=== PATIENT | male | born 1955 | race Caucasian/White ===

== ENCOUNTER → 2019-08-06 09:09 | Outpatient (BNVA) | payer BC, SELFPAY | PROVIDERS: Family Provider Family Medicine; PCP Family Medicine; Visit Provider Family Medicine | DX: I10 Essential (primary) hypertension (principal); E78.5 Hyperlipidemia, unspecified; R35.1 Nocturia; M19.90 Unspecified osteoarthritis, unspecified site; J20.8 Acute bronchitis due to other specified organisms | CPT/HCPCS: 80053; 80061; 84153; 85025 ==

== ENCOUNTER → 2020-05-05 11:20 | Outpatient (BNVA) | payer BC, SELFPAY | PROVIDERS: Family Provider Family Medicine; PCP Family Medicine; Visit Provider Nurse Practitioner Family | DX: Z20.828 Contact with and (suspected) exposure to other viral communicable diseases (principal) | CPT/HCPCS: 87426 ==

== ENCOUNTER 2020-05-09 12:57 | Day surgery (SDC) | payer BC, SELFPAY ==
[2020-05-09] VITALS (8 sets, daily range): BP systolic 110–158; BP diastolic 75–96; PULSE 71–80; RESP 15–18; TEMP 36.2–37.1; O2SAT 96–97; BMI 36.7
--- NOTE | 2020-05-09 13:35 | W.ED.COVID ---
HPI - COVID General: Chief Complaint: Infusion Bamlanivimab Stated Complaint: BAM Time Seen by Provider: 05/09/20 13:12 Source: patient Mode of arrival: ambulatory Limitations: no limitations Triage information: No fever, cough or shortness of breath. Exposure to COVID + person last 14 days History of Present Illness: HPI Narrative: The patient is a 64-year-old male with a history of hypertension and hyperlipidemia who is also a smoker who presents to the emergency department with complaints of COVID-19. He started feeling ill about a week ago got tested about 5 days ago and it was positive. Symptoms include fever, body aches, mild shortness of breath on exertion. His primary care felt he was a candidate for Bamlanivimab infusion so she sent him here. MD complaint: known COVID positive Prior covid testing: yes, results known COVID 19 common symptoms: positive fever(s), cough and non-productive cough; negative chills, productive cough, dyspnea, fatigue, body aches, headache(s), loss of sense of smell and/or taste, throat pain, nasal congestion, nausea, vomiting or diarrhea COVID 19 other sytmptoms: negative chest pressure, chest pain, pleuritic pain, requiring oxygen, requiring more oxygen, respiratory distress, cyanosis, lethargy, confusion, new neurological complaints or other concerning symptoms Onset (ago): week(s) (1) Severity: mild Pertinent comorbid conditions: hypertension and tobacco use/smoking Treatment prior to arrival: none COVID Results: SARS-CoV-2 Antigen (Rapid) Positive (Negative) H 05/05/20 11:20 05/05/20 Review of Systems General: Reports: 10 or more systems reviewed and unremarkable except in HPI and below Const: Reports: fever(s); Denies: chills, body aches or fatigue Eyes: Denies: change in vision or blurry vision ENMT: Denies: throat pain or nasal congestion Card: Denies: chest pain Resp: Reports: non-productive cough; Denies: dyspnea or productive cough GI: Denies: nausea, vomiting or diarrhea : Denies: flank pain, dysuria, urinary frequency, urinary urgency or urinary hesitancy Musc: Denies: neck pain, back pain or extremity swelling Skin/Breast: Denies: rash, pruritus or erythema Neuro: Denies: headache(s) or confusion Endo: Denies: polyuria, polydipsia or tired all the time PFSH ED PFSH: Medical History (Reviewed 05/09/20 @ 13:47 by Selena Iglesias [place] [facility] [place] Dyslipidemia Essential hypertension History of 2019 novel coronavirus disease (COVID-19) Osteoarthritis Surgical History History of eye surgery Family History (Reviewed 05/09/20 @ 13:47 by Selena Iglesias [place] [facility] [place] Other CAD (coronary artery disease) Stroke Social History Smoking and tobacco status: current every day smoker cigarettes Packs smoked per day: 1 Alcohol intake: never Substance/Drug Use: never Physical Exam Const: COMMON NORMALS: no acute distress, average body habitus, patient oriented x3, no limitations, healthy appearing, alert and well nourished HENMT: COMMON NORMALS: normocephalic, atraumatic and moist oral mucous membranes HEAD & SCALP: normocephalic and atraumatic Neck/C-Spine: COMMON NORMALS: no meningeal signs and no JVD Resp: COMMON NORMALS: normal respiratory effort, No retractions, No use of accessory muscles, clear to auscultation bilaterally and percussion normal AUSCULTATION: clear to auscultation bilaterally PERCUSSION: percussion normal Cardio: COMMON NORMALS: no JVD, regular rate, regular rhythm, S1 normal heart sound present, S2 normal heart sound present, No gallops present (Cardio), No clicks present (Cardio), No murmurs present (Cardio), No rub (Cardio) and Peripheral pulses 2+ throughout RATE: regular rate RHYTHM: regular rhythm HEART SOUNDS: S1 normal heart sound present and S2 normal heart sound present PERIPHERAL PULSES: Peripheral pulses 2+ throughout GI: COMMON NORMALS: Normal to inspection, nondistended, normoactive bowel sounds present, Soft to palpation, non-tender, No hepatosplenomegaly present, no masses and no bruits PALPATION: Yes Soft to palpation and Yes No hepatosplenomegaly present Extremity: COMMON NORMALS: normal to inspection, full ROM, capillary refill normal, no calf tenderness and no pedal edema Neuro: COMMON NORMALS: patient oriented x3 SENSORIUM/ORIENTATION: Yes alert MENINGEAL SIGNS: Yes no meningeal signs Skin: COMMON NORMALS: no rashes or lesions noted, no wounds, turgor normal, no jaundice, no petechiae and no mottling GENERAL SKIN EXAM: no rashes or lesions noted and turgor normal Course ED course: Patient who is here for a Bamlanivimab infusion. He is cleared in the emergency department and will be sent to outpatient therapy for the infusion Vital Signs: Vital signs: Vital Signs Temperature 97.2 F L 05/09/20 13:26 Pulse Rate 79 05/09/20 13:26 Respiratory Rate 15 05/09/20 13:26 Blood Pressure 133/80 05/09/20 13:26 Pulse Oximetry 96 05/09/20 13:26 MDM - COVID MDM Narrative: Medical decision making narrative: 64-year-old male with COVID-19. He is not hypoxic and does not require oxygen. His risk factors include hypertension, a BMI of greater than 35, cigarette smoking. He therefore qualifies for monoclonal antibody infusion and he will be discharged to the outpatient department for this. Vital signs are stable in the emergency department and evaluation is unremarkable. Medical Records: Attestation: I reviewed the patient's medical records. Lab Data: Attestation: I reviewed the patient's lab results. COVID Results: SARS-CoV-2 Antigen (Rapid) Positive (Negative) H 05/05/20 11:20 05/05/20 Monoclonal Antibody Treatments Inclusion/Exclusion Criteria weight >/= 40 kg and + direct Sars-Cov-2 test less than 7-10 days ago BMI >/= 35 and age >/= 55 and has hypertension not requiring hospitalization, not requiring oxygen (if not chronically on oxygen) and no increase oxygen requirement (if chronically on oxygen) Patient education patient/family/caregiver received/reviewed fact sheet, Emergency Use Authorization/unapproved drug status discussed with patient/family/caregiver, alternatives to this treatment discussed with patient/family/caregiver, risks and benefits of medication reviewed with patient/family/caregiver, patient/family/caregiver given opportunity for questions, which were answered and patient consents to receiving Monoclonal Antibody Treatment Plan for treatment Meets criteria for Monoclonal Antibody infusion Ordering Monoclonal Antibody infusion for today and Monoclonal antibody information given Discharge Plan Discharge Patient Disposition: Home Clinical Impression: COVID-19 Condition: Stable Prescriptions: Continued losartan 25 mg tablet 25 mg PO ONCE Qty: 90 RF: 1 simvastatin 40 mg tablet 40 mg PO DAILY Qty: 90 RF: 1 celecoxib [Celebrex] 200 mg capsule 200 mg PO DAILY Qty: 90 RF: 1 mupirocin 2 % ointment 1 applic TOPICAL DAILY Qty: 22 RF: 0 cyclobenzaprine 10 mg tablet 10 mg PO .po q hs PRN (Reason: muscle spasm) Qty: 30 RF: 0 Discharge Orders: Discharge ED (Routine); Ordered 05/09/20 Ordered By: Selena Iglesias Referrals: Dejah Bruner DO [Primary Care Provider] - 1-3 days Discharge Diet: Usual diet Discharge Activity: Resume usual activity Patient Instructions: Viral Syndrome - Adult Activity Restrictions/Additional Instructions: Return for any new or worsening symptoms. Follow-up with your primary care provider within 3 days. Take Tylenol or ibuprofen as needed for fever. Coding Level of Care Code ED Food Processing Scientist for Katie Collins
--- NOTE | 2020-05-12 15:31 | DCPLANNER ---
Addendum entered by Alanis Aburto 05/20/20 14:56: manager cath lab called to check on patient after day 10 of getting the BAM infusion. Patients stated that patient is doing really well, he is getting his strength back, has not been admitted to the hospital. Addendum entered by Alanis Aburto 05/15/20 11:22: manager cath lab called to check on patient, he stated that he felt fine. Stated that he has a little cough but nothing bad. Original Note: manager cath lab had message that patient received the BAM infusion. manager cath lab called patient Spoke with patients , she stated that patient tolerated the infusion well. Before the infusion patient had a fever, cough, an odd smell. After the infusion patient still has a cough but it is much better. Patient is not running a fever at this time, his oxygen is running on average 95. Patient had a telehealth visit today, 05.12.[address] Eaton office. Patient has another follow up appointment scheduled for Tuesday, May 19, [address] Eaton office.
== END 2020-05-09 16:15 | disposition home or self-care (01) ==
LOC: ER 13:50 → OPS 13:54
PROVIDERS: Emergency Provider Family Medicine; PCP Family Medicine; Visit Provider Family Medicine
DX: U07.1 COVID-19 (principal); E78.5 Hyperlipidemia, unspecified; I10 Essential (primary) hypertension; M19.90 Unspecified osteoarthritis, unspecified site; F17.210 Nicotine dependence, cigarettes, uncomplicated
CPT/HCPCS: 12345; 96365; 99281; J7050

== ENCOUNTER → 2020-08-25 09:46 | Outpatient (BNVA) | payer BC, SELFPAY | PROVIDERS: PCP Family Medicine; Visit Provider Family Medicine | DX: M15.0 Primary generalized (osteo)arthritis (principal); Z12.5 Encounter for screening for malignant neoplasm of prostate; I10 Essential (primary) hypertension; E78.5 Hyperlipidemia, unspecified; F17.219 Nicotine dependence, cigarettes, with unspecified nicotine-induced disorders; Z68.34 Body mass index [BMI] 34.0-34.9, adult | CPT/HCPCS: 80053; 80061; 81015; 82043; 83036; 85025; G0103 ==

== ENCOUNTER → 2021-02-23 10:17 | Outpatient (BNVA) | payer BC, SELFPAY | PROVIDERS: PCP Family Medicine; Visit Provider Family Medicine | DX: I10 Essential (primary) hypertension (principal); E78.5 Hyperlipidemia, unspecified; M15.0 Primary generalized (osteo)arthritis; F17.219 Nicotine dependence, cigarettes, with unspecified nicotine-induced disorders | CPT/HCPCS: 80053 ==

== ENCOUNTER → 2021-03-17 14:30 | Outpatient (BNVA) | payer BC, SELFPAY | PROVIDERS: PCP Family Medicine; Visit Provider Nurse Practitioner Family | DX: Z20.822 Contact with and (suspected) exposure to COVID-19 (principal) | CPT/HCPCS: 87426; 87635 ==

== ENCOUNTER → 2021-04-30 13:20 | Outpatient (BNVA) | payer BC, SELFPAY | PROVIDERS: PCP Family Medicine; Visit Provider Nurse Practitioner Family | DX: Z20.822 Contact with and (suspected) exposure to COVID-19 (principal); J06.9 Acute upper respiratory infection, unspecified | CPT/HCPCS: 87426; 87635 ==

== ENCOUNTER → 2021-08-24 10:25 | Outpatient (BNVA) | payer BC, SELFPAY | PROVIDERS: PCP Family Medicine; Visit Provider Family Medicine | DX: I10 Essential (primary) hypertension (principal); E78.5 Hyperlipidemia, unspecified; R35.1 Nocturia; R06.2 Wheezing | CPT/HCPCS: 80053; 80061; 82043; 84153; 85025 ==

== ENCOUNTER → 2022-11-05 09:36 | Outpatient (BNVA) | payer BC, SELFPAY | PROVIDERS: PCP Family Medicine; Visit Provider Family Medicine | DX: I10 Essential (primary) hypertension (principal); R35.1 Nocturia | CPT/HCPCS: 80053; 80061; 82043; 84153; 85025 ==

== ENCOUNTER → 2023-05-06 11:22 | Outpatient (BNVA) | payer BC, SELFPAY | PROVIDERS: PCP Family Medicine; Visit Provider Family Medicine | DX: I10 Essential (primary) hypertension (principal) | CPT/HCPCS: 80053 ==

== ENCOUNTER 2023-11-08 09:17 | Outpatient (CLI) | payer BC, SELFPAY ==
--- NOTE | 2023-11-08 09:20 | XRR_ITS ---
PROCEDURE INFORMATION: Exam: XR Right Shoulder Exam date and time: 11/08/2023 9:23 AM Age: 68 years old Clinical indication: Patient HX: Knot on the posterior side of right shoulder. Sharp joint pains. ; Additional info: Right shoulder pain TECHNIQUE: Imaging protocol: Radiologic exam of the right shoulder. Views: 2 or more views. COMPARISON: CR XR shoulder RT min 2V* [id number] 07/10/2018 3:22 PM FINDINGS: Bones/joints: The glenohumeral and acromioclavicular joints are normally aligned. No acute fracture is seen. Lungs: Visualized portions of the chest are normal. Soft tissues: Unremarkable. XR/XR shoulder RT min 2V* [id number] IMPRESSION: No evidence of acute fracture or dislocation.
== END 2023-11-08 09:18 | disposition home or self-care (01) ==
LOC: RAD 09:18
PROVIDERS: PCP Family Medicine; Visit Provider Family Medicine
DX: M25.511 Pain in right shoulder (principal); G89.29 Other chronic pain; Z13.6 Encounter for screening for cardiovascular disorders; E78.5 Hyperlipidemia, unspecified
CPT/HCPCS: 73030; 80053; 80061; 82043; 83721; 84153; 85025; 93005

== ENCOUNTER 2023-12-14 07:09 | Outpatient (CLI) | payer BC, SELFPAY ==
[2023-12-14 07:26] VITALS: BMI 39.0
--- NOTE | 2023-12-14 07:26 | ECG_ITS ---
[facility] Test Date: 2023-12-14 Pat Name: Pasquale Milligan Department: Room: Gender: Male Canvas Marker: : 1955 Requested By: Dejah Bruner Order Number: [id number] Reading MD: Interpretive Statements Lung unchanged pre/post procedure; Intraprocedure shortess of breath; Symptoms resoled by discharge [email or web address]
[2023-12-14 09:10] VITALS: BP 173/78; PULSE 78
== END 2023-12-14 07:10 | disposition home or self-care (01) ==
PROVIDERS: PCP Family Medicine; Visit Provider Family Medicine
DX: R06.02 Shortness of breath (principal)
CPT/HCPCS: 36415; 78452; 93017; A9500

== ENCOUNTER 2024-03-22 13:38 | Outpatient (CLI) | payer BC, SELFPAY ==
--- NOTE | 2024-03-22 14:00 | USCV_ITS ---
Pasquale Milligan Age: 68 Gender: M : 1955 Exam Date: 03/22/2024 13:49 Ordering Phys: Dewey Lux MD ([email or web address]) Technologist: KASH [place] [facility] [place]: chest pain sob BP: / HR: 58 Rhythm: Sinus Technical Quality: Adequate MEASUREMENTS (Male / Female) Normal Values 2D ECHO LV Diastolic Diameter PLAX 4.8 cm 4.2 - 5.9 / 3.9 - 5.3 cm IVS Diastolic Thickness 1.0 cm 0.6 - 1.0 / 0.6 - 0.9 cm IVS Systolic Thickness 1.3 cm LVPW Diastolic Thickness 1.7 cm 0.6 - 1.0 / 0.6 - 0.9 cm LVPW Systolic Thickness 1.5 cm LVOT Diameter 2.0 cm LV Ejection Fraction 2D Teich 70.5 % LV Ejection Fraction MOD 4C 54.0 % LV Ejection Fraction MOD 2C 49.9 % LV Ejection Fraction 2C AL 53.7 % LA Diameter 3.4 cm RA Systolic Volume 4C AL 16.6 ml RA Systolic Volume 4C MOD 16.3 ml LA Sys Volume AL 22.0 cm cubed LA Sys Volume Index AL 9.0 cm cubed/m squared Aorta at Sinotubular Diameter 3.0 cm M-MODE LA Ao Ratio MM 1.9 AV Cusp Separation MM 1.9 cm DOPPLER AV Peak Velocity 129.0 cm/s LVOT Peak Velocity 96.0 cm/s AV Area Cont Eq vti 2.0 cm squared AV Area Cont Eq pk 2.4 cm squared MV Area PHT 3.2 cm squared Mitral E to A Ratio 0.8 TR Peak Velocity 105.0 cm/s TR Peak Gradient 4.4 mmHg TR Mean Velocity 77.0 cm/s TR Mean Gradient 2.6 mmHg TR Velocity Time Integral 24.4 cm TV Peak E Velocity 55.0 cm/s PV Peak Velocity 97.0 cm/s FINDINGS Left Ventricle Mild diffuse hypokinesia of the left ventricle with an LV ejection fraction of 50-55%. Right Ventricle Normal right ventricular size and systolic function. Right Atrium The right atrium is normal in size. Left Atrium The left atrium is normal in size. Mitral Valve No gross morphologic abnormalities were noted Aortic Valve No gross morphologic abnormalities were noted Tricuspid Valve Trace tricuspid valve regurgitation. Pulmonic Valve No gross morphologic abnormalities were noted Pericardium Normal pericardium without effusion. Aorta Normal ascending aorta dimension. IVC Normal inferior vena cava. CONCLUSIONS Mild diffuse hypokinesia of the left ventricle with an LV ejection fraction of 50-55%. Normal right ventricular size and systolic function. Trace of tricuspid valve regurgitation. There is no pericardial effusion. There are no intracardiac masses. No similar previous studies are available for comparison Dr Dewey Lux MD FAC (Electronically Signed) Final Date: 25 March 2024 19:14 S
== END 2024-03-22 13:39 | disposition home or self-care (01) ==
LOC: RAD 13:39
PROVIDERS: PCP Family Medicine; Visit Provider Internal Medicine Cardiovascular Disease
DX: R06.09 Other forms of dyspnea (principal)
CPT/HCPCS: 93306

== ENCOUNTER → 2024-09-26 09:06 | Outpatient (BNVA) | payer BC, SELFPAY | PROVIDERS: PCP Family Medicine; Visit Provider Family Medicine | DX: Z00.00 Encounter for general adult medical examination without abnormal findings (principal); I10 Essential (primary) hypertension; Z12.5 Encounter for screening for malignant neoplasm of prostate; Z11.59 Encounter for screening for other viral diseases; Z13.6 Encounter for screening for cardiovascular disorders | CPT/HCPCS: 80053; 80061; 80074; 84153; 85025 ==

== ENCOUNTER 2024-10-05 06:15 | Outpatient (CLI) | payer BC, SELFPAY ==
[2024-10-05 06:21] VITALS: BMI 38.7
--- NOTE | 2024-10-05 06:21 | ECG_ITS ---
[facility] Test Date: 2024-10-05 Pat Name: Pasquale Milligan Department: Room: Gender: Male Manager Social Media: : 1955 Requested By: Jeimy Doyle Order Number: [id number] Agustin MD: Dewey Lux M.D. Interpretive Statements Lung unchanged pre/post procedure; Intraprocedure shortess of breath; Symptoms resoled by discharge PROCEDURE: The baseline electrocardiogram showed normal sinus rhythm with normal ST-Ts. At the baseline, the patient's blood pressure was 169/110 mm Hg with a heart rate of 84. The patient exercised for 5 minutes and 16 seconds on a standard Jam protocol. Patient attained a maximum heart rate of 152 beats per minute(99% of the maximum predicted heart rate) with a blood pressure at the peak exercise of 188/79 mm Hg. The EKG at the peak exercise revealed [address] depressions in lead II, 3, aVF, V3-V6. Patient did not have any chest pain or any significant arrhythmis with the exercise. He had shortness of breath with exercise. Sestamibi was injected 1 minute prior to the peak exercise During the recovery phase, there were no new changes. The EKG reverted back to the baseline Blood pressure at the end of the recovery phase was 173/95 mm Hg with a heart rate of 95 per minute. CONCLUSION: 1. Abnormal EKG response to [treadmill exercise suggesting ischemia in the distribution of the right coronary artery/left anterior descending artery 2. No exercise-induced chest pain or cardiac arrhythmia 3. Moderate impaired exercise tolerance, attained a maximum of 7.0 METs 4. Sestamibi/Sestamibi perfusion results pending; see separate report. Electronically Signed On 10-12-2024 10:43:38 CDT by Dewey Lux M.D. [email or web address] [email or web address]
--- NOTE | 2024-10-05 06:21 | NMCV_ITS ---
NM liana perf SPECT r/s* [id number] Pasquale Milligan Age: 69 Gender: M : 1955 Exam Date: 10/05/2024 06:59 Ordering Phys: Jeimy Doyle Technologist: NICOLE Gama Exam Location: [facility] Indications: CP STRESS TEST Please see separate stress test report in [facility] for full findings IMAGE PROTOCOL Rest/Stress 1 Exercise Day Radiopharmaceutical Dose (mCi) Administration Site Administered by Rest: Tc-99m 10.5 IV NICOLE Gama Sestamibi Stress:Tc-99m 33 IV NICOLE Contreras Sestamibi Rest: 05-Oct-2024 60 Discovery 630 Stress: 05-Oct-2024 30 Discovery 630 Radiopharmaceutical was injected at 88 % maximum heart rate. Images obtained in supine and prone position. SPECT RESULTS Technical Quality: Good Raw Data Analysis: Normal Image Corrections: No attenuation or motion correction applied Summed Stress Score: 3 Summed Rest Score: 0 Summed Difference Score: 3 PERFUSION FINDINGS Large area of moderate to severe reversibility noted in basal distal inferior wall suggestive of ischemia in RCA or dominant left circumflex territory. FUNCTIONAL RESULTS (calculated via Gated SPECT) Stress Image LV EF (%): 60 Stress EDV (mL):121 TID: 1.05 Stress ESV (mL):48 FUNCTIONAL FINDINGS: Inferior wall hypokinesis IMPRESSIONS Large area of moderate to severe ischemia noted in basal to distal inferior wall and RCA or dominant circumflex territory. Lucas Sutton MD (Electronically Signed) Final Date: 07 Oct 2024 14:08 S
[2024-10-05 08:06] VITALS: BP 173/95; PULSE 90
== END 2024-10-05 06:16 | disposition home or self-care (01) ==
LOC: CDL 06:16
PROVIDERS: PCP Family Medicine; Visit Provider Nurse Practitioner Family
DX: R07.9 Chest pain, unspecified (principal); R93.1 Abnormal findings on diagnostic imaging of heart and coronary circulation
CPT/HCPCS: 36415; 78452; 93017; A9500

== ENCOUNTER 2024-10-10 08:37 | Outpatient (CLI) | payer BC, SELFPAY ==
--- NOTE | 2024-10-10 09:00 | USCV_ITS ---
Pasquale Milligan Age: 69 Gender: M : 1955 Exam Date: 10/10/2024 09:04 Ordering Phys: Frank Minaya MD Technologist: [facility] [place] [facility] [place]: aaa screening HISTORY: Diameter (cm) AP x Transverse x Length Velocity (cm/s) Waveform Prox Aorta: 2.15 x 2.21 x 60.90 Triphasic Mid Aorta: 2.04 x 2.07 x 64.30 Triphasic Distal Aorta: 2.02 x 2.14 x 63.30 Triphasic Right Iliac Prox: 1.61 x 1.69 x 138.20 Triphasic Left Iliac Prox: 1.88 x 1.88 x 135.60 Triphasic Stent Prox Landing x x Aneurysmal Sac Max x x Lt Lat Sac Dim Rt Lat Sac Dim Stent Dist Landing x x Right Iliac Stent x x Left Iliac Stent x x Right Renal Art Left Renal Art FINDINGS: CONCLUSIONS No evidence of abdominal aortic or bilateral iliac aneurysm. Moderate arteriovascular disease within the abdominal aorta. Sloan George MD (Electronically Signed) Final Date: 10 Oct 2024 13:30 S
== END 2024-10-10 08:38 | disposition home or self-care (01) ==
PROVIDERS: PCP Family Medicine; Visit Provider Family Medicine
DX: Z13.6 Encounter for screening for cardiovascular disorders (principal); I70.0 Atherosclerosis of aorta
CPT/HCPCS: 93978

== ENCOUNTER 2024-10-19 09:34 | Outpatient (CLI) | payer BC, SELFPAY ==
--- NOTE | 2024-10-19 10:00 | CT_ITS ---
WS: [id number] LDCT LUNG CANCER SCREENING TECHNIQUE: Noncontrast CT of the chest with coronal and sagittal reformatted images. CLINICAL INFORMATION: screening COMPARISON: None. DLP: 136.31 mGy.cm DIvol: Mean CTDIvol: 2.90 (mGy) All CT scans at [facility] use at least one of these dose optimization techniques: automated exposure control; mA and/or kV adjustment per patient size (includes targeted exams where dose is matched to clinical indication); or iterative reconstruction. FINDINGS: Calcified granulomas. No suspicious pulmonary parenchymal abnormalities. Aortic calcification. Coronary calcification. No mediastinal or hilar lymphadenopathy. Calcified hilar and mediastinal lymph nodes. Adrenal glands are normal. Cholelithiasis. Mild thoracic curve. Hypertrophic changes thoracic spine. CT/CT lung screening [id number] IMPRESSION: LUNG-RADS: FOLLOW UP:
== END 2024-10-19 09:35 | disposition home or self-care (01) ==
PROVIDERS: PCP Family Medicine; Visit Provider Family Medicine
DX: Z12.2 Encounter for screening for malignant neoplasm of respiratory organs (principal); F17.219 Nicotine dependence, cigarettes, with unspecified nicotine-induced disorders; J44.9 Chronic obstructive pulmonary disease, unspecified; J84.10 Pulmonary fibrosis, unspecified; I70.0 Atherosclerosis of aorta; I25.10 Atherosclerotic heart disease of native coronary artery without angina pectoris; R59.0 Localized enlarged lymph nodes; K80.20 Calculus of gallbladder without cholecystitis without obstruction; M43.8X4 Other specified deforming dorsopathies, thoracic region; M89.38 Hypertrophy of bone, other site
CPT/HCPCS: 71271

== ENCOUNTER 2024-11-28 05:57 | Outpatient (CLI) | payer BC, SELFPAY ==
[2024-11-28] VITALS (32 sets, daily range): BP systolic 98–168; BP diastolic 52–109; PULSE 67–92; RESP 14–26; TEMP 36.7–36.8; O2SAT 90–97; BMI 38.7
--- NOTE | 2024-11-28 06:00 | XACV_ITS ---
Exam Room: [id number] Ht: 173 cm Wt: 116 kg BSA: 2.41 m2 Gender: Male : 1955 Any Known Allergies: Other Exam Priority: Routine Procedure(s): Procedure Description: Diagnostic procedure Procedure Description: PCI procedure Procedure Description: Left Heart Catheterization Procedure Description: Left ventriculography Procedure Description: Drug Eluting Coronary Stent Procedure Description: PTCA Procedure Description: Miscellaneous Procedure Description: ACT Procedure Description: Coronary Angiography Jose J SILVESTRE; Diagnostic Cath Status: Elective Diagnostic Findings * Left main is a medium caliber short vessel which bifurcates to the left anterior descending artery and the circumflex artery. * The Left anterior descending artery is a medium caliber vessel which appears to taper off to the LV apex. The proximal LAD was found to have 30 to 40% diffuse eccentric narrowing with some calcification. The mid LAD is very tortuous. There is a 40% tubular narrowing in the mid LAD. The first and the second diagonal branches were found to have around 30 to 40% ostial narrowing. No other significant stenotic lesions. * The left circumflex artery is a medium to large caliber vessel which was found to be very tortuous in the proximal segment. The first obtuse marginal branch was found to have mild diffuse intimal irregularities. Right after the first obtuse marginal artery, the circumflex proper was found to have an elongated severe diffuse disease of 70 to 90%. The distal circumflex appears to bifurcate. Mild diffuse irregularities are noted in this distal segment. Grade 2-3 [id number] collaterals were noted filling of the distal right coronary artery. * The right coronary artery appears to be completely occluded near to the ostium after the sinus jesus branch. PCI Status: Elective Interventional Findings * Procedure detail: We engaged left main artery with XB 3.0 guide catheter. IV heparin was administered to maintain anticoagulation. Run-through wire was used to cross the stenosis and placed in the distal left circumflex artery. We predilated the stenosis with 2.5 x 20 mm semicompliant balloon. This was followed by placement of 2.5 x 30 mm resolute [place] drug-eluting stent through GuideLiner as prior to stenosis, circumflex artery was tortuous. At this time final angiogram was performed that showed excellent stent expansion, no residual stenosis and with reflow. Guidewire and guide catheter were removed. Patient left the Flight Attendant/Inflight Supervisor in a stable condition.. * Mid to distal Circumflex: 80-90% stenosis treated with a AB TREK 2.50X20 RX BALLOON, and MDT R FLORIAN 2.5X30 SOCO. 0% residual stenosis, NICOLE: 3 flow. Conclusions 1. 69-year-old white male with history of hypertension, dyslipidemia and COPD is presenting with complaints of chest pain and shortness of breath. He had a Myocardial perfusion imaging which revealed moderate to large area of reversible defect in the inferolateral wall region suggestive of ischemia in distribution of the right coronary artery/circumflex artery. For further evaluation of his coronary status, a cardiac catheterization was recommended. Patient underwent left heart catheterization with left and right coronary angiogram and LV angiogram today. The findings are as follows. 2. 1. Short left main with no significant lesions 2. Mild diffuse disease in the proximal and mid LAD.3. High-grade elongated lesion in the mid circumflex artery.4. Total occlusion of the right coronary artery with a grade 2-3 [id number] collaterals.5. Normal LV ejection fraction with LVEDP of 19 mmHg. 3. I reviewed and discussed the cardiac catheterization data with Dr. Carrillo. It was thought to be appropriate to consider PCI of the circumflex artery lesion. Dr. Carrillo concurred with this plan and took over further management this patient at this point. 4. S/p PCI of mid to distal left cricumflex artery stenosis with 1 stent. 5. Mid Circumflex was treated with a Balloon, and Drug Eluting Stent. Recommendations * Dual antiplatelet therapy with aspirin and plavix. * High intensity statin therapy. * Outpatient cardiology follow up in 2 weeks. Interventional RX Recommendation: PCI w/o planned CABG Diagnostic RX Recommendation: PCI w/o planned CABG Anticoagulation: Heparin Ventriculography Ejection Fraction: 60.0 % LV EDP: 19 mmHg Left Ventriculography Findings: * The LV gram was performed in the ESQUIVEL projection. The LV cavity appears to be normal size. The LV ejection fraction was within normal limits. The LVEDP was 19 mmHg. There is no filling defects. No significant Significant Thomson. Severe significant mitral valve prolapse or mitral regurgitation. Pressures Phase:Rest AO : 105 / 66 ( 77 ) @ 8:36:00 AM 139 / 81 ( 107 ) @ 8:48:00 AM 139 / 80 ( 107 ) @ 8:48:00 AM 164 / 74 ( 102 ) @ 8:53:00 AM 133 / 88 ( 109 ) @ 8:59:00 AM 125 / 84 ( 104 ) @ 9:29:00 AM LV : 153 / -8 / 19 @ 8:48:00 AM 150 / -7 / 18 @ 8:48:00 AM 146 / -4 / 18 @ 8:48:00 AM Valves Phase:DefaultPhase AV : 3.0 @ 8:51:52 AM AV Mean Gradient: 19.0 @ 8:51:52 AM Clinical Evaluation EBL: 5mL-10mL Procedural Details Procedure Consent Obtained. Pre-Procedure Time Out. Identified patient by full name and date of as verbalized by the patient/guarantor. Does the consent match the physician's order: Yes. Accurate & Complete Informed Consent: Yes. Inpatient/Outpatient History & Physical on Chart: Yes. If H&P is completed, is and addenduem needed: No. Visualize and Verify Site with Patient/Guarantor: N/A. Relevant Radiology Images available: Yes. The risks, benefits, and alternatives of sedation and/or procedure were discussed by physician. The patient agrees to continue. Procedure started. [facility] Clinical Fraility Score: 3: Managing Well. Flight Attendant/Inflight Supervisor Indications: New Onset Angina/Abnormal stress test. Chest Pain Symptom Assessment: Typical Angina Symptoms. Cardiovascular Instability: No. Correct patient, site and procedure confirmed by cath team. PERRLA. Strong, equal hand medication coordinator bilaterally. Lungs clear x 5 lobes. IV Site on Arrival: 20 gauge in the left anticubital. IV Fluids: 0.9% NaCl at KVO. 0 mL infused prior to laborer electroplating. Pre Procedural Pulses: bilateral dorsalis pedis was 3+. Pre Procedural Pulses: bilateral posterior tibial was 3+. Pre Procedural Pulses: bilateral radial was 3+. Oxygen started at 2liters/min via nasal canula. right groin was prepped with chloroprep then draped in the usual sterile fashion. right radial was prepped with chloroprep then draped in the usual sterile fashion. Physician notified. Patient's family in CPRU room #3. Dr. Lux will update at the completion of the procedure. Equipment: 6F - Radial. Cardiac Cath Pack. ACIST Manifold Kit Model BT 2000. Heparinized Saline (2 units/mL), 1000 mL bag. Physician arrived. Baseline sample Acquired. HR: 81 BPM. Physician scrubbed in. Immediate Pre-Procedure Time Out. Correct Patient: Yes; Correct Procedure: Yes; Correct Site: Yes; Correct Patient Position: Yes; Correct Supplies: Yes; Dried Flammable Prep: Yes; Blood Products Available: N/A;. Lidocaine 1% infiltrated to the right radial. Arterial access obtained. A 5 lao Byron catheter in over the exchange J wire. Multiple views taken of left coronary artery. Catheter redirected to the RCA. Catheter removed over the exchange J wire. A 5 lao JR4 catheter in over the exchange J wire. Multiple views taken of right coronary artery. Dr. Carrillo here to view cineography. EDP Sample taken: LV 153/-8,19; HR: 69 BPM; SpO2: 91%. LV gram performed in ESQUIVEL @ 10 mL/second for a total of 30 mL. A 5 lao Angled Pig catheter in over the exchange J wire. EDP Sample taken: LV 150/-7,18; HR: 79 BPM; SpO2: 92%. Pullback taken: LV 146/-5,18; AO 139/81(107); Mean: 19mmHg, Peak to Peak: 3mmHg, SEP: 8sec/min; HR: 80 BPM; SpO2: 90%. Catheter removed over the exchange wire. Dr. Lux scrubbed out. Flushing the sheath periodically with heparinized saline to maintian patency. Dr. Carrillo scrubbed in to perform intervention. PCI Indication: CAD (without ischemic symptoms). Patient's family updated. 6 lao XB 3 guide catheter was inserted over the exchange J wire. Runthrough guidewire was advanced through the guide catheter to lesion in the mid Circ. Inflation number : 1 A AB TREK 2.50X20 RX BALLOON was prepped and advanced across the Mid CX , then inflated to 4 DIONI for 0:19 seconds. Balloon out. Guideliner in OTW. Inflation number: 2 The AB TREK 2.50X20 RX BALLOON was reinflated across the Mid CX, to 10 DIONI for 0:17 seconds. Inflation number: 3 The AB TREK 2.50X20 RX BALLOON was reinflated across the Mid CX, to 14 DIONI for 0:14 seconds. Balloon out. Florian 2.5 x 30 stent in, unable to cross, removed intact. Guideliner out OTW. 300 cm Runthrough guidewire was advanced through the guide catheter to lesion in the mid Circ. Short Runthrpough guidewire out. Teleport Microcatheter in over the 300cm Runthrough guidewire. 300cm Runthrough guidewire out. 0.014 x 190cm Wiggle guidewire in through the Teleport Microcatheter. 0.014 x 145 cm DOC Guidewire extension in. Teleport Microcatheter out over the Wiggle guidewire. DOC wire out. Guideliner in OTW. [place] 2.5 x 30 stent in, unable to cross, removed intact. Guideliner out OTW. 300cm Runthrough guidewire in. Guideliner in OTW. Guideliner out OTW. Wiggle wire out. Guideliner in OTW. Inflation Number : 4 A URI Mims FLORIAN 2.5X30 SOCO -Lot Number# [id number] Exp. was prepped and advanced across the Mid CX. The stent was deployed at 12 DIONI for 0:20 seconds. Stent balloon out over wire. Results checked. 300cm Runthrough guidewire out. Results checked. ACT drawn. Results 376 seconds. Therapeutic limits - pre-heparin administration 90-150 seconds and monitoring heparin during a vascular procedure >250 seconds. Guide catheter out over the exchange J wire. Dr. Carrillo scrubbed out. A TR Band was successful obtaining hemostatsis at the Right Radial artery insertion site. Post Procedure: Pulses reassessed and unchanged. PERRLA. Strong, equal hand medication coordinator bilaterally. No VTE prophylaxis required. Medication's Wasted: Lidocaine 1% = 18 mL. Medication's Wasted: Nitro = 49.8 mg. Medication's Wasted: Other = Versed 1 mg. Total IV fluids: 75 mL. Post-op diagnosis: SOCO to the Mid CX x 1. Complications: none. Estimated blood loss: 5mL-10mL. Responsiveness - Normal response to verbal stimuli; alert and oriented, PERRLA. Airway - Unaffected, no intervention required; spontaneous ventilation. Circulation: W/N/L, pulses unchanged. Nausea/Vomiting: No. Procedure completed. Patient transferred by bed to CPRU. Vital chart was stopped. Access Site Site: Right Radial artery Sheath Size: 6 Fr Hemostasis Method: TR Band Hemostasis Success: Successful Procedure Medications Start: 7:20 AM Stop: 7:20 AM Medication: Versed Amount: 1 mg Route: I.V. Start: 7:20 AM Stop: 7:20 AM Medication: Fentanyl Amount: 50 mcg Route: I.V. Start: 7:32 AM Stop: 7:32 AM Medication: Verapamil Amount: 5 mg Route: I.A. Start: 7:32 AM Stop: 7:32 AM Medication: Nitrogylcerin Amount: 200 mcg Route: I.A. Start: 7:34 AM Stop: 7:34 AM Medication: Fentanyl Amount: 25 mcg Route: I.V. Start: 7:35 AM Stop: 7:35 AM Medication: Heparin Amount: 5000 units Route: I.V. Start: 7:41 AM Stop: 7:41 AM Medication: Versed Amount: 1 mg Route: I.V. Start: 7:58 AM Stop: 7:58 AM Medication: Heparin Amount: 6000 units Route: I.V. Start: 8:04 AM Stop: 8:04 AM Medication: Fentanyl Amount: 25 mcg Route: I.V. Start: 8:27 AM Stop: 8:27 AM Medication: Versed Amount: 1 mg Route: I.V. Start: 8:48 AM Stop: 8:48 AM Medication: Plavix Amount: 600 mg Route: P.O. I, the attending physician, have reviewed and verified all procedure medications. Yes, all medications given per verbal order History/Risk Factors Hypertension: Yes Dyslipidemia: Yes Peripheral Arterial Disease (PAD): No Myocardial Infarction (CO): No Obesity: Yes Renal Disease: No Tobacco Use: Former Prior Interventions PCI: No CABG: No Valve Surgery: No Report Signatures Interventional Workflow Finalized by Graeme Carrillo MD on 12/10/2024 09:50 AM Diagnostic Workflow Finalized by Dr Dewey Lux MD [facility] on 11/28/2024 07:58 PM
[2024-11-28 06:25] LABS: Hematocrit 48.1 % (37-53); Hemoglobin 15.20 g/dL (11.27-16.99); Mean Corpuscular HGB Conc 31.6 g/dL (30-55); Mean Corpuscular Hemoglobin 26.5 pg (27-33); Mean Corpuscular Volume 83.9 fl (82-101); Nucleated Red Blood Cells % 0 %; Platelet Count 208 10^3/cmm (157-399); Red Blood Count 5.73 10^6/uL (3.85-5.65); White Blood Count 8.96 10^3/uL (3.29-11.43)
[2024-11-28 06:48] LABS: Anion Gap 19.2 (5-19); Blood Urea Nitrogen 22 mg/dL (8-23); Calcium 9.5 mg/dL (8.5-10.5); Carbon Dioxide 27 mmol/L (22-29); Chloride 98 mmol/L (98-107); Creatinine Clr Calc Pharmacy 98.3544; Glucose 138 mg/dL (65-115); Osmolality Calculated 296 mOsm/kg (285-295); Potassium 4.2 mmol/L (3.5-5.1); Sodium 140 mmol/L (136-145)
--- NOTE | 2024-11-28 06:55 | P.HP_ITS ---
Providers/Chief Complaint 2 Admitting Physician: DAYRON Lux MD/cardiology Primary Care Provider: Frank Minaya MD Chief Complaint: R94.39 History of Present Illness Pasquale Milligan is a 69 year old male with a history of hypertension, dyslipidemia, is presenting with complaints of chest pain. He had a Myocardial perfusion imaging which revealed a moderate to large area of reversible defect in the distribution of the right coronary artery/circumflex artery. For further evaluation of his coronary status, cardiac catheterization was recommended. This patient is known to have high blood pressure, dyslipidemia and COPD. He never had a cardiac catheterization. Review of Systems 2 Narrative: CONSTITUTIONAL: No fever or chills. EYES: No blurring of vision or other visual disturbances lately. ENT: No hoarseness of voice, auditory disturbances or sore throat. CARDIOVASCULAR: As mentioned above. Pulmonary : history of COPD; no significant cough. GASTROINTESTINAL: No hematemesis or melena. GENITOURINARY: No dysuria or hematuria. INTEGUMENTARY: No skin rashes or history of skin cancer. NEURO: No transient ischemic attacks or amaurosis. PSYCHIATRIC: No history of psychosis or major depression. HEMATOLOGIC: No bleeding disorders or significant anemia. ENDOCRINE: No history of polyuria or polydipsia. MUSCULOSKELETAL: No recent joint pain or swelling. ALLERGY/IMMUNOLOGY: As mentioned above. Medications/Allergies Home Medications ?Medication ?Instructions ?Recorded ?Confirmed ?Last Taken ?Type acetaminophen 500 mg tablet 500 mg PO Q6H PRN Pain 02/1011/26/24 Unknown History (Tylenol Extra Strength) cetirizine 10 mg tablet (24Hour 10 mg PO DAILY PRN all ergies 04/30/21 11/28/24 11/27/24 12:00 History Allergy) albuterol sulfate 90 mcg/actuation 2 puff inhalation Q 6H PRN 05/06/23 11/26/24 Unknown Rx aerosol inhaler (ProAir HFA) shortness of breath or wh eezing #8.5 grams cyclobenzaprine 10 mg tablet 10 mg PO .po q hs PRN mus denita spasm 11/08/23 11/26/24 Unknown Rx #30 tabs celecoxib 200 mg capsule (Celebrex) 200 mg PO DAILY #9 0 caps 02/21/24 11/28/24 11/27/24 20:00 Rx hydrocortisone acetate 0.5 % 1 applic topical BID PRN skin 04/17/24 11/26/24 Unknown Rx topical cream irritation #28.4 grams mupirocin 2 % topical ointment 1 applic topical BID #2 2 grams 04/17/24 11/26/24 Unknown Rx budesonide-formoterol HFA 80 2 puff inhalation BID #10 .2 grams 05/31/24 11/26/24 Unknown Rx mcg-4.5 mcg/actuation aerosol inhaler (Symbicort) simvastatin 40 mg tablet 40 mg PO DAILY #90 tabs 0102/1411/28/24 11/27/24 20:00 Rx isosorbide mononitrate 30 mg 30 mg PO DAILY #90 tabs 0 08/21/24 11/28/24 11/27/24 10:00 Rx tablet,extended release 24 hr metoprolol tartrate 25 mg tablet 25 mg PO BID #90 tabs 08/23/24 11/28/24 11/27/24 10:00 Rx losartan 50 mg tablet 50 mg PO ONCE #90 tabs 10/2911/28/24 11/27/24 20:00 Rx Allergies Allergy/AdvReac Type Severity Reaction Status Date / Time Clute And Derivatives Allergy ADR-Nausea Verified 09/26/24 07:58 ibuprofen Allergy Unknown Verified 09/26/24 07:58 lemon Allergy Unknown Verified 09/26/24 07:58 sulfamethoxazole (From Allergy ADR-Vomitin Verified 09/26/24 07:58 Bactrim) g trimethoprim (From Bactrim) Allergy ADR-Vomitin Verified 09/26/24 07:58 g PFSH Acute 2 PFSH: Medical History Screening PSA (prostate specific antigen) COPD (chronic obstructive pulmonary disease) CAD (coronary artery disease), quileute coronary artery Nicotine dependence, cigarettes, with unspecified nicotine-induced disorders Back abscess History of 2019 novel coronavirus disease (COVID-19) Dyslipidemia Essential hypertension Osteoarthritis Surgical History History of eye surgery Family History Other CAD (coronary artery disease) Stroke Social History Smoking and tobacco/nicotine status: former use of tobacco/nicotine Alcohol intake: never Substance/Drug Use: never Vitals/I&O/Wt Last Vital Signs Temp 98.3 F 11/28/24 06:27 Pulse 92 11/28/24 06:27 Resp 18 11/28/24 06:27 BP 168/109 11/28/24 06:27 Pulse Ox 94 11/28/24 06:27 O2 Del Method Room Air 11/28/24 06:27 Weight last 48 hrs Weight 255 lb Physical Exam 2 Narrative: GENERAL: The patient is alert and oriented times three. Not in any acute distress. HEENT: No significant pallor, icterus or lymphadenopathy.Oral cavity: There are no mucous membrane lesions. NECK: Trachea appears to be central. No masses noted. No JVD or thyromegaly appreciated. RESPIRATORY: Chest is symmetrical. No intercostals muscle retraction or any accessory muscle activation. There is no chest wall tenderness. Breath sounds are heard bilaterally. No rales or rhonchi heard. No evidence of any consolidation. BREASTS: Deferred. HEART: The heart sounds are normal. No S3 or S4. No significant murmurs. No pericardial rub ABDOMEN: No vessel pulsations or distention. No tenderness. No organomegaly appreciated. Bowel sounds are normally heard. : Deferred. RECTAL: Deferred. LYMPHATIC: No lymphadenopathy noted in the neck. EXTREMITIES: No edema or cyanosis. No clubbing. MUSCULOSKELETAL: No acute joint deformities or swelling SKIN: There are no significant rashes or ecchymosis NEUROPSYCHIATRIC: The patient is alert and oriented x3. Appears to be in a good mood. No tremors or rigidity noted. Data 11/28/24 06:17 11/28/24 06:17 Other Labs: Laboratory Last Values WBC 8.96 10^3/uL (3.29-11.43) 11/28/24 06:17 RBC 5.73 10^6/uL (3.85-5.65) H 11/28/24 06:17 Hgb 15.20 g/dL (11.27-16.99) 11/28/24 06:17 Hct 48.1 % (37-53) 11/28/24 06:17 MCV 83.9 fl (82-101) 11/28/24 06:17 MCH 26.5 pg (27-33) L 11/28/24 06:17 MCHC 31.6 g/dL (30-55) 11/28/24 06:17 RDW 13.2 % (12.1-15.1) 11/28/24 06:17 Plt Count 208 10^3/cmm (157-399) 11/28/24 06:17 MPV 11.7 fL (7.4-10.4) H 11/28/24 06:17 Neut % (Auto) 55.3 % 11/28/24 06:17 Lymph % (Auto) 32.8 % 11/28/24 06:17 Monona % (Auto) 10.2 % 11/28/24 06:17 Eos % (Auto) 1.1 % 11/28/24 06:17 Baso % (Auto) 0.4 % 11/28/24 06:17 Neut # (Auto) 4.95 10^3/uL (1.8-7.7) 11/28/24 06:17 Lymph # (Auto) 2.9 10^3/uL (0.8-4.8) 11/28/24 06:17 Monona # (Auto) 0.9 10^3/uL (0.2-0.9) 11/28/24 06:17 Eos # (Auto) 0.1 10^3/uL (0.0-0.8) 11/28/24 06:17 Baso # (Auto) 0.0 10^3/uL (0.0-0.1) 11/28/24 06:17 Nucleated RBC % (auto) 0 % 11/28/24 06:17 Nucleated RBCs # 0.0 /100WBC 11/28/24 06:17 Sodium 140 mmol/L (136-145) 11/28/24 06:17 Potassium 4.2 mmol/L (3.5-5.1) 11/28/24 06:17 Chloride 98 mmol/L (98-107) 11/28/24 06:17 Carbon Dioxide 27 mmol/L (22-29) 11/28/24 06:17 Anion Gap 19.2 (5-19) H 11/28/24 06:17 BUN 22 mg/dL (8-23) 11/28/24 06:17 Creatinine 0.9 mg/dL (0.7-1.2) 11/28/24 06:17 GFR Calculation 84.2 mL/min (90-130) L 11/28/24 06:17 Glucose 138 mg/dL (65-115) H 11/28/24 06:17 Calculated Osmolality 296 mOsm/kg (285-295) H 11/28/24 06:17 Calcium 9.5 mg/dL (8.5-10.5) 11/28/24 06:17 A&P Assessment and plan 1. Abnormal cardiovascular stress test: The Myocardial perfusion imaging was suggestive of ischemia in the distribution of the left circumflex artery/right coronary artery. Apparently this patient never had any cardiac colorization in the past. 2. Essential hypertension: Blood pressure is low stage II. We may need to optimize the antihypertensive medications. Apparently the patient has not taken blood pressure medications this morning. 3. Dyslipidemia: Will continue on the current medications. 4. ROSENTHAL (dyspnea on exertion): This could be multifactorial. Coronary ischemia, COPD, obesity are contributing factors. Plan: For further evaluation of the patient's coronary status, he requires a cardiac catheterization. The risk of bleeding, hematoma, vascular injury, myocardial infarction, myocardial perforation, malignant cardiac arrhythmias ,CVA, renal failure and other concomitant complications were explained in detail. Patient understood this well and consented to proceed. Based on the angiogram findings, further recommendations will be made. PDMP PDMP Reviewed: Not Reviewed Attestations 2 Medical Necessity Statement*: Patient may require 1 midnight stay Coding Level of Care Code 15737 Diagnoses Abnormal cardiovascular stress test R94.39 Essential hypertension I10 Dyslipidemia E78.5 ROSENTHAL (dyspnea on exertion) R06.09
--- NOTE | 2024-11-28 07:00 | W.PM.OPSUD ---
Surgery/Procedure H&P Update DATE OF PROCEDURE: November 28, 2024 DATE H&P PERFORMED: 11/28/24 H&P UPDATE INFORMATION: I have reviewed H&P completed within last 30 days, I have examined patient prior to procedure and No changes to prior documentation PREOP DIAGNOSIS: Atherosclerotic heart disease PRIMARY INDICATION FOR PROCEDURE: Abnormal Myocardial perfusion imaging/high blood pressure/dyslipidemia/COPD PLANNED PROCEDURE: Operation Date: 11/28/24 07:00 Proposed Procedures p Cardiac Catheterization - C w/wo LV & Coros(Left) - Dewey Lux MD PATIENT REASSESSED PRIOR TO SEDATION, WITH NO CHANGE NOTED: Yes PHYSICAL EXAM: alert, oriented x 3 and clear to auscultation bilaterally AIRWAY EVAL/ANESTHESIA PLAN: normal airway, see other exam findings, ASA II, Local Anesthesia, Risks, benefits & alternatives of sedation and/or procedure discussed and Patient agrees to continue as planned
--- NOTE | 2024-11-28 09:12 | PM.PROC ---
Procedure Note: Date of procedure: 11/28/24 Pre-procedure diagnosis: Chest pain/abnormal stress test Post-procedure diagnosis: other (Severe left circumflex artery stenosis s/p PCI with 1 stent) Procedure: ( Diagnostic cath performed by Dr Lux, intervention by Dr Carrillo )Severe left circumflex artery stenosis s/p PCI with 1 stent. 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
--- NOTE | 2024-11-28 12:51 | PC.NURSE ---
Patient received from CPRU with TR band in place to right wrist. Patient is s/p LHC with PCI. No s/s of bleeding or hematoma formation observed. instructed patient on site care with restrictions. Patient verbalized complete understanding. Patient denies pain or needs.
[2024-11-28] MEDS: ATORVASTATIN 10 MG TABLET 20 MG PO (13:24)
--- NOTE | 2024-11-28 14:18 | PC.NURSE ---
TR band removed at this time. No s/s of bleeding or hematoma formation observed. Reinforced instruction regarding right wrist. Again patient verbalized complete understanding. Covered site with 2x2 and bio-occlusive dressing.
[2024-11-29 04:00] VITALS: BP 113/57; PULSE 67; RESP 16
[2024-11-29] MEDS: ATORVASTATIN 10 MG TABLET 20 MG PO (07:44)
[2024-11-29 07:54] VITALS: PULSE 75; RESP 16; O2SAT 96
[2024-11-29 08:03] VITALS: PULSE 73
--- NOTE | 2024-11-29 08:47 | P.PN_ITS ---
Subjective 2 Subjective: Patient underwent cardiac catheterization yesterday. 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 The circumflex artery was found to have a high-grade lesion at the mid segment. He underwent a PCI of the circumflex lesion. The LAD was found to have mild diffuse disease. Patient remained totally asymptomatic throughout the hospital course. No chest pains. Vital signs remained stable. Medications: Medication Review Details: Current Medications Acetaminophen (Acetaminophen 500 Mg Tablet) 500 mg PO Q6H PRN PRN Reason: PAIN Albuterol Sulfate (Albuterol 2.5 Mg/3 Ml Neb) 2.5 mg INHALATION Q6H PRN PRN Reason: shortness of breath or wheezing Albuterol Sulfate (Albuterol 2.5 Mg/3 Ml Neb) 2.5 mg INHALATION QID.RESPIRATORY [facility] Last Admin: 11/29/24 07:52 Dose: 2.5 mg Atorvastatin Calcium (Atorvastatin 10 Mg Tablet) 20 mg PO DAILY [facility] Last Admin: 11/29/24 07:44 Dose: 20 mg Budesonide (Budesonide 0.5 Mg/2 Ml Neb) 0.5 mg INHALATION BID.RESPIRATORY LOI Last Admin: 11/29/24 07:52 Dose: 0.5 mg Celecoxib (Celecoxib 200 Mg Capsule) 200 mg PO DAILY LOI Last Admin: 11/29/24 07:43 Dose: 200 mg Cetirizine HCl (Cetirizine 10 Mg Tablet) 10 mg PO DAILY PRN PRN Reason: ALLERGIES Clopidogrel Bisulfate (Clopidogrel 75 Mg Tablet) 75 mg PO DAILY [facility] Last Admin: 11/29/24 07:52 Dose: 75 mg Cyclobenzaprine HCl (Cyclobenzaprine 10 Mg Tablet) 10 mg PO BEDTIME PRN PRN Reason: muscle spasm Hydrocortisone (Hydrocortisone 0.5% Cream 28 Gm) 1 applic TOPICAL BID PRN PRN Reason: skin irritation Isosorbide Mononitrate (Isosorbide Mononitrate Er 30 Mg Tablet) 30 mg PO DAILY [facility] Last Admin: 11/29/24 07:45 Dose: 30 mg Losartan Potassium (Losartan 50 Mg Tablet) 50 mg PO DAILY LOI Last Admin: 11/29/24 07:44 Dose: 50 mg Metoprolol Tartrate (Metoprolol Tartrate 25 Mg Tablet) 25 mg PO BID [facility] Last Admin: 11/29/24 07:44 Dose: 25 mg Mupirocin (Mupirocin Oint 22 Gm) 1 applic TOPICAL BID LOI Last Admin: 11/29/24 07:25 Dose: Not Given Vitals/I&O/Wt Last Vital Signs Temp 98.0 F 11/28/24 23:37 Pulse 73 11/29/24 08:03 Resp 16 11/29/24 07:54 BP 113/57 11/29/24 04:00 Pulse Ox 96 11/29/24 07:54 O2 Del Method Room Air 11/29/24 07:54 Weight last 48 hrs Weight 255 lb Physical Exam 2 Narrative: GENERAL: The patient is alert and oriented times three. Not in any acute distress. HEENT: No significant pallor, icterus or lymphadenopathy.Oral cavity: There are no mucous membrane lesions. NECK: Trachea appears to be central. No masses noted. No JVD or thyromegaly appreciated. RESPIRATORY: Chest is symmetrical. No intercostals muscle retraction or any accessory muscle activation. There is no chest wall tenderness. Breath sounds are heard bilaterally. No rales or rhonchi heard. No evidence of any consolidation. BREASTS: Deferred. HEART: The heart sounds are normal. No S3 or S4. No significant murmurs. No pericardial rub ABDOMEN: No vessel pulsations or distention. No tenderness. No organomegaly appreciated. Bowel sounds are normally heard. : Deferred. RECTAL: Deferred. LYMPHATIC: No lymphadenopathy noted in the neck. EXTREMITIES: No edema or cyanosis. No clubbing. The right radial artery puncture site has no hematoma or bleeding MUSCULOSKELETAL: No acute joint deformities or swelling SKIN: There are no significant rashes or ecchymosis NEUROPSYCHIATRIC: The patient is alert and oriented x3. Appears to be in a good mood. No tremors or rigidity noted. Data 11/28/24 06:17 11/28/24 06:17 Other Labs: Laboratory Last Values WBC 8.96 10^3/uL (3.29-11.43) 11/28/24 06:17 RBC 5.73 10^6/uL (3.85-5.65) H 11/28/24 06:17 Hgb 15.20 g/dL (11.27-16.99) 11/28/24 06:17 Hct 48.1 % (37-53) 11/28/24 06:17 MCV 83.9 fl (82-101) 11/28/24 06:17 MCH 26.5 pg (27-33) L 11/28/24 06:17 MCHC 31.6 g/dL (30-55) 11/28/24 06:17 RDW 13.2 % (12.1-15.1) 11/28/24 06:17 Plt Count 208 10^3/cmm (157-399) 11/28/24 06:17 MPV 11.7 fL (7.4-10.4) H 11/28/24 06:17 Neut % (Auto) 55.3 % 11/28/24 06:17 Lymph % (Auto) 32.8 % 11/28/24 06:17 [place] % (Auto) 10.2 % 11/28/24 06:17 Eos % (Auto) 1.1 % 11/28/24 06:17 Baso % (Auto) 0.4 % 11/28/24 06:17 Neut # (Auto) 4.95 10^3/uL (1.8-7.7) 11/28/24 06:17 Lymph # (Auto) 2.9 10^3/uL (0.8-4.8) 11/28/24 06:17 [place] # (Auto) 0.9 10^3/uL (0.2-0.9) 11/28/24 06:17 Eos # (Auto) 0.1 10^3/uL (0.0-0.8) 11/28/24 06:17 Baso # (Auto) 0.0 10^3/uL (0.0-0.1) 11/28/24 06:17 Nucleated RBC % (auto) 0 % 11/28/24 06:17 Nucleated RBCs # 0.0 /100WBC 11/28/24 06:17 Sodium 140 mmol/L (136-145) 11/28/24 06:17 Potassium 4.2 mmol/L (3.5-5.1) 11/28/24 06:17 Chloride 98 mmol/L (98-107) 11/28/24 06:17 Carbon Dioxide 27 mmol/L (22-29) 11/28/24 06:17 Anion Gap 19.2 (5-19) H 11/28/24 06:17 BUN 22 mg/dL (8-23) 11/28/24 06:17 Creatinine 0.9 mg/dL (0.7-1.2) 11/28/24 06:17 GFR Calculation 84.2 mL/min (90-130) L 11/28/24 06:17 Glucose 138 mg/dL (65-115) H 11/28/24 06:17 Calculated Osmolality 296 mOsm/kg (285-295) H 11/28/24 06:17 Calcium 9.5 mg/dL (8.5-10.5) 11/28/24 06:17 A&P Assessment and plan 1. Atherosclerosis of coronary artery of [place] heart without angina pectoris, unspecified vessel or lesion type: Patient status post cardiac catheterization. Status post PCI of the circumflex artery. Currently seems to be stable. May continue on the aspirin and Plavix along with the other medications. 2. Essential hypertension: Currently he is normotensive. May continue on the current medications. 3. Dyslipidemia: Will continue on the current medications. 4. ROS[place] (dyspnea on exertion): Symptoms are somewhat resolved. Plan: Do a BMP today. If he continues to remain stable, will be discharged home today Follow-up appointment [facility] in 1 week Patient will be seen by me in in the office as scheduled. Patient is advised to continue the medications as mentioned above. The importance of compliance to diet, medications and exercise were discussed. In the event of the patient developing chest pain ,unusual palpitations or any new symptoms, is advised to contact me or come to the hospital. PDMP PDMP Reviewed: Not Reviewed Attestations 2 Medical Necessity Statement*: Discharge home today Coding Level of Care Code 58025 Diagnoses Atherosclerosis of coronary artery of [place] heart without angina pectoris, unspecified vessel or lesion type I25.10 Coronary Disease-Associated Artery/Lesion type: unspecified vessel or lesion type [place] vs. transplanted heart: [place] heart Associated angina: without angina Essential hypertension I10 Dyslipidemia E78.5 ROS[place] (dyspnea on exertion) R06.09
[2024-11-29 09:11] LABS: Anion Gap 18.8 (5-19); Blood Urea Nitrogen 18 mg/dL (8-23); Calcium 9.6 mg/dL (8.5-10.5); Carbon Dioxide 25 mmol/L (22-29); Chloride 98 mmol/L (98-107); Creatinine Clr Calc Pharmacy 98.3544; Glucose 168 mg/dL (65-115); Osmolality Calculated 292 mOsm/kg (285-295); Potassium 3.8 mmol/L (3.5-5.1); Sodium 138 mmol/L (136-145)
[2024-11-29 09:22] VITALS: BP 132/78
--- NOTE | 2024-11-29 09:42 | PC.NURSE ---
Patient discharged to home. Instruction provided regarding follow up needs, new medications with changes and site care with restriction. patient verbalized understanding. Dressing to right wrist remains c,d,i without s/s of bleeding or hematoma formation observed. Patient denies pain or needs. No distress observed. Patient taken by wheelchair to private vehicle with spouse by side.
== END 2024-11-29 09:44 | disposition home or self-care (01) ==
LOC: CCL 06:00 → CSU 12:54
PROVIDERS: Internal Medicine; PCP Family Medicine; Visit Provider Internal Medicine Cardiovascular Disease
DX: I25.10 Atherosclerotic heart disease of native coronary artery without angina pectoris (principal); I25.82 Chronic total occlusion of coronary artery; I10 Essential (primary) hypertension; E78.5 Hyperlipidemia, unspecified; J44.9 Chronic obstructive pulmonary disease, unspecified; E66.9 Obesity, unspecified; Z68.38 Body mass index [BMI] 38.0-38.9, adult; R06.09 Other forms of dyspnea; Z82.49 Family history of ischemic heart disease and other diseases of the circulatory system; Z87.891 Personal history of nicotine dependence
CPT/HCPCS: 36415; 80048; 85025; 85347; 93458; 94640; 99152; 99153; C1725; C1769; C1874; C1887; C1894; C9600; J1644; J2250; J3010; J3490; J7030; J7613; J7626; J9999; Q0163; Q9967

== ENCOUNTER 2025-01-21 05:00 | Outpatient (RCR) | payer BC, SELFPAY | END 2025-02-19 23:59 | disposition home or self-care (01) | LOC: GPT 05:00 | PROVIDERS: PCP Family Medicine; Visit Provider Family Medicine | DX: M54.50 Low back pain, unspecified (principal); G89.29 Other chronic pain | CPT/HCPCS: 97110; 97140; 97161 ==